=== PATIENT | female | born 1945 | race Caucasian/White ===

== ENCOUNTER 2023-01-02 12:08 | Emergency (ER) | payer MEDICARE, OTHER ==
[~2023-01-02] VITALS: Ht 149.9 cm; Wt 66.8 kg
[~2023-01-02 12:08] MED LIST: CEPH250T PO
[2023-01-02 13:41] LABS: BASOPHILS # (AUTO) 0.1 X10'3 (0-0.2); BASOPHILS % (AUTO) 0.8 % (0-1); EOSINOPHILS # (AUTO) 0.9 X10'3 (0-0.9); EOSINOPHILS % (AUTO) 9.9 % (0-6); HEMATOCRIT 40.9 % (35.0-45.0); HEMOGLOBIN 13.4 g/dl (12.0-16.0); LYMPHOCYTES # (AUTO) 2.5 X10'3 (1.1-4.8); LYMPHOCYTES % (AUTO) 26.6 % (21-51); MEAN CORPUSCULAR HEMOGLOBIN 27.6 PG (27.0-31.0); MEAN CORPUSCULAR HGB CONC 32.8 g/dL (33.0-36.5); MEAN CORPUSCULAR VOLUME 84.2 FL (78-98); MEAN PLATELET VOLUME 9.4 FL (7.4-10.4); MONOCYTES # (AUTO) 0.6 X10'3 (0-0.9); MONOCYTES % (AUTO) 6.8 % (2-12); NEUTROPHILS # (AUTO) 5.3 X10'3 (1.8-7.7); NEUTROPHILS % (AUTO) 55.9 % (42-75); PLATELET COUNT 253 X10'3 (140-440); RED BLOOD COUNT 4.86 X10'6 (4.20-5.60); RED CELL DISTRIBUTION WIDTH 16.4 % (11.5-14.5); WHITE BLOOD COUNT 9.5 X10'3 (4.5-11.0)
[2023-01-02 13:54] LABS: ALANINE AMINOTRANSFERASE 14 U/L (12-78); ALBUMIN 3.4 G/DL (3.4-5.0); ALBUMIN/GLOBULIN RATIO 0.9 (1.1-1.5); ALKALINE PHOSPHATASE 78 IU/L (46-116); ANION GAP 7 (8-16); ASPARTATE AMINO TRANSFERASE 11 U/L (10-37); BILIRUBIN,TOTAL 0.8 MG/DL (0.1-1.0); BLOOD UREA NITROGEN 22 MG/DL (7-18); BUN/CREATININE RATIO 26.8 (10.0-20.0); CALCIUM 9.1 MG/DL (8.5-10.1); CHLORIDE 106 MMOL/L (99-107); CREATININE 0.82 MG/DL (0.40-0.90); GLUCOSE 94 MG/DL (70-104); POTASSIUM 3.6 MMOL/L (3.5-5.1); SODIUM 140 MMOL/L (135-145); TOTAL CARBON DIOXIDE 27.3 MMOL/L (24-32); eGFR 68 ML/MIN
[2023-01-02] MEDS ORDERED: albuterol 2.5 MG/3 ML nebule NEB ONE (15:40)
--- NOTE | 2023-01-02 15:46 | NUR ---
RT PAGED FOR SVN TX AND BTX
[2023-01-02 16:18] VITALS: BP 141/83
[2023-01-02] MEDS ORDERED: GUAI400T92 PO (16:24)
[2023-01-02] MEDS ORDERED: AMOX-117 PO (16:24)
== END 2023-01-02 16:36 | disposition home or self-care (01) ==
LOC: ER 12:08
DX: J47.9 Bronchiectasis, uncomplicated (principal); R53.1 Weakness; G20 Parkinson's disease; Z88.1 Allergy status to other antibiotic agents; Z87.448 Personal history of other diseases of urinary system
CPT/HCPCS: 36415; 71045; 80053; 83880; 84484; 85025; 93005; 94640; 94760; 99285

== ENCOUNTER 2024-03-07 15:19 | Emergency (ER) | payer MEDICARE, OTHER ==
[~2024-03-07] VITALS: Ht 180.3 cm; Wt 76.4 kg
--- NOTE | 2024-03-07 15:58 | NUR ---
DAUGHTER SHAHAB CALLED TO GET AN UPDATE ON THE PT, ANDREIA STATED THE NURSE JUST GOT THE PATIENT AND WOULD BE UNAVAILABLE AT THIS TIME TO TALK BUT THEY CAN CALL BACK IN 15-20 MINS TO GET AN UPDATE FROM THE NURSE WHEN THE PT GETS SETTLED. DAUGHTER INFORMED TECH, PT HAS A HISTORY OF UTIS AND SEPSIS. ANDREIA INFORMED RN OF INFORMATION.
--- NOTE | 2024-03-07 16:54 | NUR ---
Patients [facility] in room.
--- NOTE | 2024-03-07 16:54 | NUR ---
patients daughter Cherise Kwong called asking for a update. update of care given. Daughter said patient has a PMH of urosepsis and PNU in the past. daughter provided her phone number if we need to contact her. [phone]
--- NOTE | 2024-03-07 17:08 | NUR ---
Called [facility] to confirm if they had transport back to facility. they said they do not have a internal service and to contact [facility] or [facility].
--- NOTE | 2024-03-07 17:26 | NUR ---
[facility] dispatch called. Stated that transport should be there within the hour
--- NOTE | 2024-03-07 17:30 | NUR ---
Attempted to call [facility] to give a report.
--- NOTE | 2024-03-07 17:45 | NUR ---
Gave report to Ernestina Marshall ([employer]) at [facility].
[2024-03-07 18:02] VITALS: BP 145/86; PULSE 91; RESP 17; TEMP 98.8; O2SAT 95
--- NOTE | 2024-03-07 18:05 | NUR ---
[facility] arrived to transport patient back to care facility.
== END 2024-03-07 18:13 | disposition home or self-care (01) ==
LOC: ER 15:20
DX: I10 Essential (primary) hypertension (principal); G20.A1 Parkinson's disease without dyskinesia, without mention of fluctuations
CPT/HCPCS: 71045; 93005; 99283

== ENCOUNTER 2024-07-15 09:06 | Outpatient (CLI) | payer MEDICARE, OTHER ==
[~2024-07-15] VITALS: Ht 149.9 cm; Wt 59.9 kg
[2024-07-15] VITALS (7 sets, daily range): BP systolic 109–153; BP diastolic 43–57; PULSE 65–100; RESP 18–22; O2SAT 97
[2024-07-15] MEDS: regadenoson 0.4mg/5ml syringe IV ONE (10:44)
== END 2024-07-15 23:59 | disposition home or self-care (01) ==
LOC: NM 09:06
PROVIDERS: ATTEND Internal Medicine Interventional Cardiology
DX: R94.31 Abnormal electrocardiogram [ECG] [EKG] (principal)
CPT/HCPCS: 78452; 93017; A9500; J2785